=== PATIENT | female | born 1950 | race Caucasian/White ===

== ENCOUNTER → 2016-08-21 | Outpatient (CLI) | payer OTHER ==
[~2016-08-21] MED LIST: IOPAMIDOL (ISOVUE-300) 100 ML BTL IV ONE
[2016-08-21 10:24] LABS: CREATININE 0.8 mg/dL (0.6-1.0); GLOMERULAR FILTRATION RATE > 60
--- NOTE | 2016-08-21 12:20 | CT ---
CT Abdomen and Pelvis (Without and With Contrast) CT Urogram 1047 hours History gross hematuria (R 31.0). Recurrent bladder infections. Technique: Spiral images were obtained through the abdomen and pelvis without contrast for renal ston e evaluation. 99 mL of Isovue-300 IV contrast were administered and spiral images were obtained throu gh the abdomen. After a 12-minute delay, spiral imaging was obtained through the abdomen and pelvis. Images were reconstructed in multiple planes for CT urogram imaging. An AP scanogram breakfast bar attendant image was also obtained over the abdomen and pelvis after axial imaging was acquired. Dose reduction techniques were utilized. Findings: On the noncontrast images, there is no evidence of calculus projected over the kidneys or a long the expected path of the ureters. No bladder calculus is seen, as well. With IV contrast administration, there is good uptake and excretion of contrast by the kidneys. There is incidental cyst mid to upper right kidney measuring 16 x 13 mm. There are a few subcentimeter cys ts lower pole left kidney. No filling defects are seen within the collecting system on either side wi th normal contour to the renal collecting structures, as well as the ureters. The distal ureters do n ot fill completely on delayed imaging. On delayed KUB breakfast bar attendant image there is adequate filling of the di stal left ureter. Extrarenal pelvis is present bilaterally. There is indentation along the posterior wall of the left renal pelvis from a vessel. The bladder has a normal contour. No bladder lesion is s een. Liver: Within the left lobe liver lateral segment which is positioned in the left upper abdomen there is an incidental cyst measuring 3.7 x 3.1 cm. No additional liver lesions are seen. Spleen: Normal. Gallbladder and Bile Ducts: Normal. Pancreas: Normal. Adrenals: Normal. Abdominal Aorta: No aneurysm. Pelvic structures: There are no pelvic masses or lymphadenopathy. The patient has had a previous hyst erectomy. There does appear to be left ovary along the left pelvic sidewall. Bladder: Normal . Appendix: Previous appendectomy. Bowel Loops: Normal. No bowel obstruction, ascites, or significant retroperitoneal lymphadenopathy. Skeletal system: Vertebral body heights are well-maintained. Degenerative disk disease is noted more prominent on the left side of L3-L4. Disk bulges are seen throughout the lumbar spine with findings most prominent at L4-L5 along with ligamentum flavum hypertrophy and facet hypertrophy contributes to moderate spinal stenosis. Impression: 1. Normal CT urogram. No underlying renal or ureteral lesions are seen as well as normal contour to t he bladder. 2. Incidental renal cysts. 3. Extrarenal pelvis noted bilaterally. 4. Incidental cyst left lobe liver lateral segment. 5. Degenerative disk disease involving the lumbar spine along with facet hypertrophy associated spina l stenosis at L4-L5
== END ==
LOC: FIMAGING 09:49
PROVIDERS: ATTEND Physician Assistant Medical
DX: Z03.89 Encounter for observation for other suspected diseases and conditions ruled out (principal); N28.1 Cyst of kidney, acquired; M51.36 Other intervertebral disc degeneration, lumbar region; M48.06 Spinal stenosis, lumbar region
CPT/HCPCS: 74178; Q9967

== ENCOUNTER → 2016-08-27 | Outpatient (CLI) | payer OTHER ==
--- NOTE | 2016-08-27 19:37 | DX ---
Chest, Two Views, August 27, 2016 at 1520 hours History: J15.9. Bacterial pneumonia. Comparison: Chest x-ray March 2016, CT February 2016. Findings: Cardiac silhouette is within normal range. Bilateral peribronchial thickening. No pneumo sophia, congestive heart failure, pleural effusion, or pneumothorax. In the anterior aspect of the righ t fourth rib, there is a sclerotic bone island, unchanged since March 09, 2016. Resolution of previ ous bilateral lower lobe atelectasis. Impression: 1. Bronchitis. 2. No definite focal pneumonia.
== END ==
LOC: BMCIMAGING 15:23
PROVIDERS: ATTEND Internal Medicine
DX: J40 Bronchitis, not specified as acute or chronic (principal)

== ENCOUNTER → 2017-04-07 | Outpatient (CLI) | payer OTHER | LOC: BMCIMAGING 08:22 | PROVIDERS: ATTEND Internal Medicine | DX: Z12.31 Encounter for screening mammogram for malignant neoplasm of breast (principal) | CPT/HCPCS: G0202 ==

== ENCOUNTER → 2017-04-23 | Outpatient (CLI) | payer OTHER | LOC: BMCIMAGING 08:54 | PROVIDERS: ATTEND Internal Medicine | DX: R09.89 Other specified symptoms and signs involving the circulatory and respiratory systems (principal); R10.10 Upper abdominal pain, unspecified; R11.0 Nausea ==

== ENCOUNTER → 2017-04-26 | Outpatient (CLI) | payer OTHER | LOC: BMCIMAGING 07:34 | PROVIDERS: ATTEND Internal Medicine | DX: R09.89 Other specified symptoms and signs involving the circulatory and respiratory systems (principal); R10.10 Upper abdominal pain, unspecified; R11.0 Nausea; K76.89 Other specified diseases of liver; N28.1 Cyst of kidney, acquired ==

== ENCOUNTER → 2017-04-30 | Outpatient (CLI) | payer OTHER | LOC: FIMAGING 09:04 | PROVIDERS: ATTEND Internal Medicine | DX: R10.10 Upper abdominal pain, unspecified (principal); R11.0 Nausea ==

== ENCOUNTER 2017-11-21 06:52 | Emergency (ER) | payer OTHER ==
--- NOTE | 2017-11-21 07:22 | EDPHY ---
H & P Stated Complaint: l sided lagos intermittent 2 wks/pcp ordered mri unable to get scheduled Time Seen by Provider: 11/21/17 07:21 - Personal History Current Tetanus/Diphtheria Vaccine: Yes Tetanus Vaccine Date: 2015 - Medical/Surgical History Hx Asthma: Yes Hx Chronic Respiratory Disease: No Hx Diabetes: No Hx Cardiac Disease: No Hx Renal Disease: No Hx Cirrhosis: No Hx Alcoholism: No Hx HIV/AIDS: No Hx Splenectomy or Spleen Trauma: No Other PMH: PMHx: chronic back pain, LBBB, Thyroid mass. PSHx: Meningioma removal 2016; appy; hysterectomy; T&A;LBBB-2016. ;LABILE B/P;Asthma;1971 ovarian cyst removal;Polio. l thmb surgery - Social History Smoking Status: Never smoked Constitutional: Initial Vital Signs Temperature (C) 36.5 C 11/21/17 07:04 Heart Rate 79 11/21/17 07:04 Respiratory Rate 18 11/21/17 07:04 Blood Pressure 124/88 H 11/21/17 07:04 O2 Sat (%) 95 11/21/17 07:04 O2 Delivery Mode Room Air Allergies/Adverse Reactions: bisacodyl [From Dulcolax (bisacodyl)] Allergy (Verified 11/21/17 07:03) prochlorperazine [From Compazine] Allergy (Verified 11/21/17 07:03) prochlorperazine edisylate [From Compazine] Allergy (Verified 11/21/17 07:03) prochlorperazine maleate [From Compazine] Allergy (Verified 11/21/17 07:03) thimerosal Allergy (Verified 11/21/17 07:03) Home Medications: Medication Instructions Recorded buPROPion XL [Wellbutrin 150mg XL] 150 mg PO DAILY 07/30/15 Cholecalciferol Vit D3 [Vitamin D3 1,000 units PO DAILY 03/08/16 (*)] Herbals/Supplements -Info Only 1 ea PO DAILY 03/08/16 [place]-3 Fatty Acids [Fish Oil 1000 1,000 mg PO DAILY 03/08/16 mg (*)] Acetaminophen [Tylenol 325mg (*)] 325 - 650 mg PO Q4 PRN #0 tab 03/28/16 Calcium Carbonate [Oyster Shell 500 mg PO QID #0 tab 03/28/16 Calcium 500 mg (*)] buPROPion XL [Wellbutrin 150mg XL] 150 mg PO DAILY #0 tab 03/28/16 Calcium Carb W/Vit D [Calcium Carb 500 mg PO BID #60 tab 03/29/16 W/Vit D 500/200 (*)] Chainstitch Zipper Setter Thyroid 11/21/17 Medical Decision Making ED Course/Re-evaluation: CHIEF COMPLAINT: Headache HISTORY OF PRESENT ILLNESS: 67-year-old female whose had a headache for 2 weeks on the left side of her head. She saw Dr. Saeid Castillo on Wednesday. He did a full neurologic exam and also evaluated her for infectious cause like sinusitis and did not believe it was sinus infection. Neurologic exam was normal. As it is today. 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 She also has an arachnoid cyst somewhere and she is not sure where that is. This headache has been present for 2 weeks it has been constant left-sided nothing really relieves that nothing makes it worse. Denies fevers or chills. Denies systemic illness. Denies neurologic dysfunction. Denies recent trauma. Does state that her teeth hurt in her left ear hurts a bit REVIEW OF SYSTEMS: A 10 point review of systems was performed and is negative with the exception of the elements mentioned in the history of present illness. PHYSICAL EXAM: HR, BP, O2 Sat, RR. Temp noted General Appearance: Alert, well hydrated, appropriate, and non-toxic appearing. Head: Atraumatic without scalp tenderness or obvious injury Eyes: Pupils equal, round, reactive to light and accommodation, EOMI, no trauma , no injection. Ears: Clear bilaterally, no perforation, normal landmarks Nose: Atraumatic, no rhinorrhea, clear. Throat: There is no erythema or exudates, no lesions, normal tonsils, mucus membranes moist. Neck: Supple, 2+ carotid upstroke, nontender, no lymphadenopathy. Respiratory: No retractions, no distress, no wheezes, and no accessory muscle use. Lungs are clear to auscultation bilaterally. Cardiovascular: Regular rate and rhythm, no murmurs, rubs, or gallops. Bilateral carotid, radial, dorsalis pedis, and posterior tibial pulses intact. Good capillary refill all extremities. Gastrointestinal: Abdomen is soft, nontender, non-distended, no masses, no rebound, no guarding, no peritoneal signs. Musculoskeletal: Normal active ROM of all extremities, atraumatic. Neurological: Alert, appropriate, and interactive. The patient has normal DTRs and non-focal cranial nerves, motor, sensory, and cerebellar exam. Skin: No rashes, good turgor, no nodules on palpation. Past medical history: Meningioma, arachnoid cyst Past surgical history: Meningioma removal Family history: Noncontributory Social history: , retired, does not abuse tobacco drugs or alcohol DIAGNOSTICS/PROCEDURES/CRITICAL CARE TIME: Study: MRI of the: Brain with and without contrast Indication: History of meningioma resection and an arachnoid cyst with headache x2 weeks Results: MRI scan of the brain was obtained. The results of the study are no changes from prior. The study was read by the radiologist, Dr. Mendoza. I viewed the images myself on the PACS system. DIFFERENTIAL DIAGNOSIS: The differential diagnosis for the patient's headache included but was not limited to subarachnoid hemorrhage, migraine headache, tension headache and infectious causes such as meningitis, pharyngitis and sinusitis. MEDICAL DECISION MAKING: This patient has had a meningioma resection of a cerebellar pontine angle back in 2016. She also has an arachnoid cyst and she is unsure what part of her brain that is in. She has had a headache on the left side for 2 weeks and she also has dental pain and left ear pain. She saw her primary physician on Wednesday who did not think this was sinusitis although her symptoms seem as a could be sinusitis. At this point based on her intracranial history we will perform neuro imaging with and without contrast. She cannot take any nonsteroidals, she gets seizures with Compazine, and she only uses Tylenol for pain and does not want any opioids. MRI is negative for acute process. Reevaluated patient and discussed findings. She declines further treatment of her headache and would like to go home. Follow up and return precautions discussed. - Data Points Laboratory Results: 11/21/17 07:54 POC Hgb 15.3 gm/dL gm/dL (12.6-16.3) POC Hct 45 % % (38-47) POC Sodium 143 mEq/L mEq/L (135-145) POC Potassium 3.7 mEq/L mEq/L (3.3-5.0) POC Chloride 104 mEq/L mEq/L (97-110) POC BUN 15 mg/dL mg/dL (7-23) POC Creatinine 0.9 mg/dL mg/dL (0.6-1.0) POC Glucose 81 mg/dL mg/dL (70-100) Point of Care Test Results: 11/21/17 07:54 POC Sodium 143 POC Potassium 3.7 POC Chloride 104 POC BUN 15 POC Creatinine 0.9 POC Glucose 81 Departure - Departure Disposition: Home, Routine, Self-Care Clinical Impression: Headache Qualifiers: Headache type: other headache syndrome Qualified Code(s): G44.89 - Other headache syndrome Condition: Good Instructions: Acute Headache (ED) Additional Instructions: Follow up with your primary care provider and/or neurologist for continued symptoms. Return to the ED for any worsening of condition. Referrals: Saeid Castillo MD [Primary Care Provider] - As per Instructions
[2017-11-21] MEDS ORDERED: GADOBUTROL 10 ML VIAL IVP ONE (08:28)
[2017-11-21 10:20] VITALS: BP 120/68
== END 2017-11-21 10:20 | disposition home or self-care (01) ==
DX: G44.89 Other headache syndrome (principal); J45.909 Unspecified asthma, uncomplicated
CPT/HCPCS: 70553; 99285; A9585; 82947-QW

== ENCOUNTER → 2018-03-24 | Outpatient (CLI) | payer OTHER | LOC: BMCIMAGING 13:30 | PROVIDERS: ATTEND Internal Medicine Endocrinology, Diabetes & Metabolism | DX: Z13.820 Encounter for screening for osteoporosis (principal); M85.89 Other specified disorders of bone density and structure, multiple sites; Z78.0 Asymptomatic menopausal state ==

== ENCOUNTER → 2018-05-03 | Outpatient (CLI) | payer OTHER | LOC: FIMAGING 08:21 | PROVIDERS: ATTEND Internal Medicine | DX: Z12.31 Encounter for screening mammogram for malignant neoplasm of breast (principal) ==

== ENCOUNTER → 2018-05-10 | Outpatient (CLI) | payer OTHER | LOC: FIMAGING 14:05 | PROVIDERS: ATTEND Internal Medicine | DX: I25.10 Atherosclerotic heart disease of native coronary artery without angina pectoris (principal); J98.09 Other diseases of bronchus, not elsewhere classified; K76.89 Other specified diseases of liver; N28.1 Cyst of kidney, acquired ==

== ENCOUNTER → 2018-08-23 | Outpatient (CLI) | payer OTHER | LOC: FIMAGING 10:41 | PROVIDERS: ATTEND Internal Medicine Endocrinology, Diabetes & Metabolism | DX: Z08 Encounter for follow-up examination after completed treatment for malignant neoplasm (principal); Z85.850 Personal history of malignant neoplasm of thyroid ==

== ENCOUNTER 2018-08-29 08:34 | Emergency (ER) | payer OTHER ==
--- NOTE | 2018-08-29 09:14 | EDPHY ---
General Time Seen by Provider: 08/29/18 09:14 Narrative: CLINICAL IMPRESSION: Cough, reactive airway disease ASSESSMENT/PLAN: Patient is a 68-year-old female with a significant medical history of asthma, remote thyroid cancer status post thyroidectomy, remote brain tumor and remote polio who presents to the emergency department with complaints of cough, burning sensation across chest and episode of choking. Patient is afebrile and not toxic appearing, she was in no acute distress. The patient was placed on sloop captain and and ECG was immediately obtained- revealed sinus rhythm with underlying left bundle branch block; reviewed by Dr. Horn. When compared to previous ECG, unchanged and without signs of acute ischemia. Troponin undetectable. CBC with mild leukocytosis which I suspect is secondary to dexamethasone. Her vital signs were reviewed and there was no evidence of sepsis or serious bacterial illness. CMP with no significant metabolic abnormality or evidence of acute kidney injury. Chest x-ray revealed mild reactive airway disease. Influenza is negative. History and physical examination is most consistent with acute exacerbation of reactive airway disease. The patient was given an albuterol nebulized treatment with a marked improvement of her symptoms. There were no findings of ACS, pneumothorax or pneumonia and I have a low suspicion for other etiologies to include but not limited to pulmonary embolism, aortic dissection, Senia- Harvey tear, boerhaave syndrome, pancreatitis, mediastinitis, myocarditis, pericarditis, or additional intra-abdominal/intrathoracic emergent processes. On repeat examination the patient reports that she is feeling better. She is very reassured by findings today. The patient was able to obtain a follow-up appointment with her primary care provider this afternoon who knows her very well. Strict return precautions discussed- she will return for any symptom concern, particularly chest pain, shortness of breath, rapid or irregular heartbeat, unusual fatigue, cough, coughing up blood or discolored sputum, swelling, dizziness, weakness, fainting, nausea, vomiting, abdominal pain, fever , chills, headache, or for any other new, worsening, or worrisome symptoms. Patient verbalizes understanding and she is in agreement with plan. DIFFERENTIAL DX: Chest pain including but not limited to myocardial ischemia, pulmonary embolus, chest wall pain, pleural inflammation and pulmonary infectious causes. ED COURSE: 930: Discussed with Dr. Rozeski 945: ECG reviewed by Dr. Horn, very similar to previous ECG. 1005: Chest x-ray with evidence of mild reactive airway disease, no evidence of consolidation. 1105: On repeat examination the patient is well-appearing, she states she feels much better after the nebulized treatment. She has been able to obtain an appointment with Dr. Castillo this afternoon. Patient will continue her dexamethasone and montelukast that she just started, will add nebulized treatments at home as needed. CHIEF COMPLAINT: Cough, chest burning and choking HPI: Patient is a 68-year-old female with a history of asthma, thyroid cancer status post thyroidectomy, a remote brain tumor and remote polio who presents to the emergency department with cough, choking and burning sensation across her chest. Patient reports at 5:30 a.m. this morning she was awoken from her sleep with a coughing attack, she was experiencing a burning sensation across her chest at that time and reports coughing so hard she started to choke. Patient got out of bed and proceeded to have a severe coughing fit. She used her albuterol without any relief. She reports that the burning sensation across her chest lasted a short period of time, it did not radiate and she had no associated nausea, vomiting or diaphoresis. She feels that it was associated to her coughing fit. Patient has been experiencing cough for the last 8 days, seen and evaluated by her primary care provider last Wednesday and Wednesday. She was prescribed montelukast, dexamethasone and albuterol and feels that she is not getting better. She does have a history of asthma however does not feel like this is an asthma exacerbation. Patient denies any runny nose, congestion , earache or sore throat. She has had no fevers or chills. She denies any nausea, vomiting or abdominal pain. Bowel movements have been regular, denies any urinary symptoms. She endorses an extensive workup by pulmonology and has also trialed antacids for this in the past. PMH: Asthma, remote thyroid cancer status post thyroidectomy, remote brain tumor and remote polio Pertinent Past Surgical History: Thyroidectomy Family History: Noncontributory Social History: Denies smoking, denies illicit drug use REVIEW OF SYSTEMS: All other systems negative Constitutional: [No fever, no chills, appetite change.] Eyes: [No discharge, vision change] ENT: [No sore throat, congestion, ear pain.] Cardiovascular: Chest burning sensation, no palpitations Respiratory: Cough, shortness of breath, choking. Gastrointestinal: [No abdominal pain, no vomiting, diarrhea.] Genitourinary: [No hematuria, dysuria, flank pain, pelvic pain] Musculoskeletal: [No joint swelling, joint pain, myalgias.] Skin: [No rashes, color change.] Neurological: [No headache, dizziness, weakness.] PHYSICAL EXAM: General Appearance: Elderly, well-developed, tired appearing however not toxic- appearing. HENT: Normocephalic, atraumatic. Bilateral external ears are normal. Bilateral tympanic membranes are normal with pearly stevens reflex. Nares are clear, mucosa is pink. Oropharynx is clear, uvula is midline. There is no tonsillar enlargement or exudate. The dentition is normal. Eyes: [PERRLA, no acute vision change, nystagmus, swelling, discharge, pain or photosensitivity. Conjunctiva pink, no pallor or injection.] Neck: [Supple, nontender, no lymphadenopathy, no midline pain, FROM, no meningismus.] Respiratory: [There are no retractions, lungs with mild global expiratory wheeze and mild rhonchi at the bases.] Cardiac: [Regular rate and rhythm, no murmurs or gallops.] Gastrointestinal: [Abdomen is soft, nontender, bowel sounds normal, no masses/ hernia, no rigidity, guarding or focal peritoneal findings.] Neurological: [ Alert and oriented x 3, CN 2-12 grossly intact, normal gait no ataxia, DTR's intact, normal sensation and strength.] Skin: [Warm, dry, no rashes, no nodules on palpation.] Musculoskeletal: [Extremities are symmetrical, full range of motion, no tenderness, deformity, swelling, or erythema.] Psychiatric: [Patient is oriented X 3, there is no agitation.] MEDICAL DECISION MAKING: Patient was seen independently. Secondary supervising physician at time of evaluation was Dr. Horn, I discussed all aspects of this case and plan of care with him however he did not evaluate this patient personally. Diagnosis: Cough, reactive airway disease. New, requires workup Summary: [ See Assessment and Plan for summary of ED visit ] Clinical lab tests: [ ordered / reviewed]. Independent visualization of images, tracing, or specimens: Yes. Decision to obtain medical records or history from someone other than the patient: Yes, Review / Summarize previous medical records: Yes Discussed patient with another provider: Yes, Dr. Horn Patient Progress: Stable, discharged. - Diagnostics Imaging Results: Imaging Impressions Chest X-Ray 08/29/18 09:24 Impression: Features consistent with mild reactive airways' disease. There is no focal infiltrate. - History Smoking Status: Never smoked - Objective Vital Signs: Initial Vital Signs Temperature (C) 36.3 C 08/29/18 08:46 Heart Rate 85 08/29/18 08:46 Respiratory Rate 18 08/29/18 08:46 Blood Pressure 114/78 08/29/18 08:46 O2 Sat (%) 97 08/29/18 08:46 O2 Delivery Mode Room Air Allergies/Adverse Reactions: bisacodyl [From Dulcolax (bisacodyl)] Allergy (Verified 11/21/17 07:03) prochlorperazine [From Compazine] Allergy (Verified 11/21/17 07:03) prochlorperazine edisylate [From Compazine] Allergy (Verified 11/21/17 07:03) prochlorperazine maleate [From Compazine] Allergy (Verified 11/21/17 07:03) thimerosal Allergy (Verified 11/21/17 07:03) Home Medications: Medication Instructions Recorded buPROPion XL [Wellbutrin 150mg XL] 150 mg PO DAILY 07/30/15 Cholecalciferol Vit D3 [Vitamin D3 1,000 units PO DAILY 03/08/16 (*)] Herbals/Supplements -Info Only 1 ea PO DAILY 03/08/16 [place]-3 Fatty Acids [Fish Oil 1000 1,000 mg PO DAILY 03/08/16 mg (*)] Acetaminophen [Tylenol 325mg (*)] 325 - 650 mg PO Q4 PRN #0 tab 03/28/16 Calcium Carbonate [Oyster Shell 500 mg PO QID #0 tab 03/28/16 Calcium 500 mg (*)] buPROPion XL [Wellbutrin 150mg XL] 150 mg PO DAILY #0 tab 03/28/16 Calcium Carb W/Vit D [Calcium Carb 500 mg PO BID #60 tab 03/29/16 W/Vit D 500/200 (*)] Enrichment Director Thyroid 11/21/17 Albuterol [Proventil Neb] 3 ml IH QID PRN #30 deyvial 08/29/18 Laboratory Results: Laboratory Results 08/29/18 10:00 08/29/18 10:00 08/29/18 08/29/18 08/29/18 10:39 10:07 10:00 WBC RBC Hgb Hct MCV MCH MCHC RDW Plt Count MPV Neut % (Auto) Lymph % (Auto) Merrick % (Auto) Eos % (Auto) Baso % (Auto) Nucleat RBC Rel Count Absolute Neuts (auto) Absolute Lymphs (auto) Absolute Monos (auto) Absolute Eos (auto) Absolute Basos (auto) Absolute Nucleated RBC Immature Gran % Immature Gran # Sodium 138 mEq/L mEq/L (135-145) Potassium 3.5 mEq/L mEq/L (3.5-5.2) Chloride 106 mEq/L mEq/L (97-110) Carbon Dioxide 25 mEq/l mEq/l (22-31) Anion Gap 7 mEq/L mEq/L (6-14) BUN 16 mg/dL mg/dL (7-23) Creatinine 0.6 mg/dL mg/dL (0.6-1.0) Estimated GFR > 60 Glucose 96 mg/dL mg/dL (70-100) Calcium 8.7 mg/dL mg/dL (8.5-10.4) Total Bilirubin 0.9 mg/dL mg/dL (0.1-1.4) AST 18 IU/L IU/L (14-46) ALT 22 IU/L IU/L (9-52) Alkaline Phosphatase 79 IU/L IU/L (38-126) POC Troponin I 0.01 ng/mL ng/mL (0.00-0.08) Total Protein 6.3 g/dL g/dL (6.3-8.2) Albumin 3.8 g/dL g/dL (3.5-5.0) Nasal Influenza A PCR NEGATIVE FOR FLU A (NEGATIVE) Nasal Influenza B PCR NEGATIVE FOR FLU B (NEGATIVE) 08/29/18 10:00 WBC 10.77 10^3/uL H 10^3/uL (3.80-9.50) RBC 4.59 10^6/uL 10^6/uL (4.18-5.33) Hgb 14.3 g/dL g/dL (12.6-16.3) Hct 41.5 % % (38.0-47.0) MCV 90.4 fL fL (81.5-99.8) MCH 31.2 pg pg (27.9-34.1) MCHC 34.5 g/dL g/dL (32.4-36.7) RDW 11.9 % % (11.5-15.2) Plt Count 292 10^3/uL 10^3/uL (150-400) MPV 10.2 fL fL (8.7-11.7) Neut % (Auto) 78.8 % H % (39.3-74.2) Lymph % (Auto) 14.1 % L % (15.0-45.0) Merrick % (Auto) 5.9 % % (4.5-13.0) Eos % (Auto) 0.3 % L % (0.6-7.6) Baso % (Auto) 0.3 % % (0.3-1.7) Nucleat RBC Rel Count 0.0 % % (0.0-0.2) Absolute Neuts (auto) 8.49 10^3/uL H 10^3/uL (1.70-6.50) Absolute Lymphs (auto) 1.52 10^3/uL 10^3/uL (1.00-3.00) Absolute Monos (auto) 0.64 10^3/uL 10^3/uL (0.30-0.80) Absolute Eos (auto) 0.03 10^3/uL 10^3/uL (0.03-0.40) Absolute Basos (auto) 0.03 10^3/uL 10^3/uL (0.02-0.10) Absolute Nucleated RBC 0.00 10^3/uL 10^3/uL (0-0.01) Immature Gran % 0.6 % % (0.0-1.1) Immature Gran # 0.06 10^3/uL 10^3/uL (0.00-0.10) Sodium Potassium Chloride Carbon Dioxide Anion Gap BUN Creatinine Estimated GFR Glucose Calcium Total Bilirubin AST ALT Alkaline Phosphatase POC Troponin I Total Protein Albumin Nasal Influenza A PCR Nasal Influenza B PCR Medications Given: Discontinued Medications Albuterol (Proventil Neb) 3 ml IH EDNOW ONE Stop: 08/29/18 09:28 Last Admin: 08/29/18 10:37 Dose: 3 ml Point of Care Test Results: Chemistry 08/29/18 10:07 POC Troponin I 0.01 ng/mL ng/mL (0.00-0.08) Departure - Departure Disposition: Home, Routine, Self-Care Clinical Impression: Reactive airway disease Qualifiers: Asthma severity: mild Asthma persistence: intermittent Asthma complication type : with acute exacerbation Qualified Code(s): J45.21 - Mild intermittent asthma with (acute) exacerbation Condition: Good Instructions: Reactive Airways Disease (ED) Additional Instructions: DISCHARGE INSTRUCTIONS FROM YOUR DOCTOR Thank you for visiting our emergency department today. Please keep in mind that discharge from the emergency department does not mean that there is nothing wrong - it simply means that we have not identified an emergency condition that requires further evaluation or treatment in the hospital. You should always plan to follow up with primary care for re-evaluation of your condition in the next 2-3 days. Please follow-up with Dr. Castillo as we discussed. Nebulized treatment as prescribed and as needed. People present with illnesses and injuries in different ways, and it is always possible that we have missed something. You may always return for re-evaluation if symptoms worsen or if they are not improving or if you develop new/different symptoms. Again, thank you for choosing our emergency department. We hope that you feel better. Referrals: Saeid Castillo MD [Primary Care Provider] - 1 day without fail Prescriptions: Albuterol [Proventil Neb] 3 ml IH QID PRN #30 deyvial PRN Reason: Short Of Breath/Dyspnea
[2018-08-29] MEDS ORDERED: ALBUTEROL 3 ML DEYVIAL IH ONE (09:27)
--- NOTE | 2018-08-29 09:56 | CPEKG ---
Test Reason : OPEN Blood Pressure : / mmHG Vent. Rate : 053 BPM Atrial Rate : 052 BPM P-R Int : 155 ms QRS Dur : 132 ms QT Int : 464 ms P-R-T Axes : 073 -56 086 degrees QTc Int : 436 ms Sinus rhythm Atrial premature complex Left bundle branch block Confirmed by Hernan Sutherland ([id number]) on 08/29/2018 9:55:55 AM Referred By: HERNAN SUTHERLAND Confirmed By:Hernan Sutherland
[2018-08-29 10:13] LABS: PLATELET COUNT 292 10^3/uL (150-400)
--- NOTE | 2018-08-29 12:15 | ASMTCMCOM ---
CM Note CM Note Notes: CM asked to meet with patient regarding obtaining a home nebulizer. Prescription provided per ED provider. This CM contacted RT Keli who confirms that patient should simply take prescription to her pharmacy and inquire into cost and/or insurance coverage. Keli also confirms that patient may need to obtain an order/prescription from her PCP for insurance coverage. Patient informed by this CM. Patient states that she has an appointment scheduled today at 3:30 PM with her PCP, Dr. Castillo and I have LM with Dr. Castillo Electromyographic Technician, Karely regarding coordination of care. Patient is aware that she can drop off her current prescription at the pharmacy and discuss this further with this afternoon. CM available for further needs Date Signed: 08/29/2018 12:14 PM Electronically Signed By:Nadia Bruce RN
[2018-08-29 12:22] VITALS: BP 121/81
== END 2018-08-29 12:26 | disposition home or self-care (01) ==
DX: J45.21 Mild intermittent asthma with (acute) exacerbation (principal)
CPT/HCPCS: 71046; 93005; 99285; J7613; 84484-ER

== ENCOUNTER → 2018-09-11 | Outpatient (CLI) | payer OTHER | LOC: FIMAGING 09:50 | PROVIDERS: ATTEND Internal Medicine Pulmonary Disease | DX: R91.8 Other nonspecific abnormal finding of lung field (principal); J45.909 Unspecified asthma, uncomplicated; R05 Cough; R09.89 Other specified symptoms and signs involving the circulatory and respiratory systems ==

== ENCOUNTER → 2018-09-15 | Outpatient (CLI) | payer OTHER | LOC: FIMAGING 07:51 | PROVIDERS: ATTEND Internal Medicine Pulmonary Disease | DX: R05 Cough (principal); R09.89 Other specified symptoms and signs involving the circulatory and respiratory systems ==

== ENCOUNTER 2018-09-22 14:06 | Inpatient (IN) | payer OTHER ==
[2018-09-22] MEDS ORDERED: NS 500 ML IV ONE (14:21)
[2018-09-22] MEDS ORDERED: LIDOCAINE 1% 2 ML INJ ID PRN (14:21)
[2018-09-22] MEDS ORDERED: ALBUTEROL 3 ML DEYVIAL IH ONE (14:21)
[2018-09-22] MEDS ORDERED: BENZOCAINE UNIT DOSE SPRAY HURRICAINE MM ONE (16:05)
[2018-09-22] MEDS ORDERED: fentaNYL 100 MCG/2 ML INJ ONE (16:05)
[2018-09-22] MEDS ORDERED: MIDAZOLAM 2 MG/2 ML VIAL ONE (16:05)
[2018-09-22] MEDS ORDERED: ALBUTEROL 3 ML DEYVIAL ONE ×2 (16:05→17:50)
[2018-09-22] MEDS ORDERED: LIDOCAINE 1% 300 MG/30 ML SDV ONE (16:05)
[2018-09-22] MEDS ORDERED: EPINEPHrine 1 MG/ML INJ ONE (16:06)
[2018-09-22] MEDS ORDERED: LIDOCAINE HCL 4% TOPICAL SOLN 50ML ONE (16:06)
--- NOTE | 2018-09-22 16:06 | PDPROPOC ---
Sedation Plan of Care Sedation Plan of Care: vital signs stable, mental status noted, patient educated of risks, benefits, alternatives, patient can tolerate sedation ASA Classification: ASA 2 Planned drugs: fentanyl, midazolam Mallampati Score: Class 1 Mallampati Reference Image:
--- NOTE | 2018-09-22 16:06 | PDHPUP ---
History & Physical Update H&P update statement: This history and physical update is based on an assessment of the patient which was completed after admission or registration (within 24 hours), but prior to the surgery/procedure. H&P update: H&P reviewed & patient examined, no change in patient's condition since H&P completed
[2018-09-22] MEDS ORDERED: ACETAMINOPHEN 325 MG TAB PO PRN (19:29)
[2018-09-22] MEDS ORDERED: LORazepam 0.5 MG TAB PO PRN (19:29)
[2018-09-22] MEDS ORDERED: NS 1,000 ML IV SCH (19:30)
[2018-09-22] MEDS ORDERED: traMADol 50 MG TAB PO PRN (19:42)
[2018-09-22] MEDS: OXYCODONE/APAP 5/325 TAB PO PRN (20:35)
--- NOTE | 2018-09-22 23:09 | GCON ---
[f rep st] CONSULTATION DATE OF CONSULTATION: 09/22/2018 REASON FOR ADMISSION: Right-sided pneumothorax following transbronchial biopsy. HISTORY: Lurdes is a pleasant 68-year-old who I have been seeing recently in the office for cough. S he is a long-time asthmatic, but presented to me on referral from Dr. Castillo for a severe and prolong ed cough. Spirometry was not consistent with significant asthma or an asthma exacerbation. She has significant pulmonary congestion. A CT scan of the chest was done which showed bilateral small pulmo nary infiltrates associated with some bronchial wall thickening. Bronchoscopy was done with transbro nchial biopsies to obtain a diagnosis. This was done earlier today. Biopsies were done on the right side. Postprocedure, she had significant ongoing coughing and hypoxemia with saturations of approxi mately 85 despite oxygen by mask. Chest x-ray showed a relatively large primarily upper zone pneumot horax. A small bore chest tube was placed. This procedure is dictated elsewhere. Post chest tube p lacement x-ray is pending. As part of her workup, a barium swallow was done. There was no evidence of aspiration or reflux. PAST MEDICAL HISTORY: In addition to her asthma, she has a history of distant thyroid cancer and is status post thyroidectomy. MEDICATIONS: Home medications included levalbuterol by nebulizer, along with Pulmicort twice a day, tramadol, thyroid at 82 mcg per day by her recollection, ProAir HFA p.r.n., Flonase p.r.n., tapering Decadron, and recently azithromycin. SOCIAL HISTORY: She has recently moved into an old farm house with her boyfriend. The house has bee n quite dirty and active cleaning has been taking place. Her cough seems to be worse when she is at home, better when she is out and about. She has a dog to which she is not allergic. She is a never smoker. Significant alcohol is negative. FAMILY HISTORY: Negative/noncontributory. REVIEW OF SYSTEMS: A 10-point review of systems is negative except as mentioned above. She has not been sleeping well over the last several weeks secondary to persistent coughing at night. She does n ot bring up much mucus. PHYSICAL EXAMINATION: GENERAL: Reveals a woman who is comfortable, in no distress after her chest t ube was placed. VITAL SIGNS: Blood pressure is approximately 105/60, pulse 65 with sinus rhythm on the monitor, respiratory rate is 18. On an oxygen mask, saturations are 98%. HEENT: Remarkable for somewhat dry mucous membranes. There is no jugular venous distention. LUNGS: A new small bore preet st tube is in place in the right anterior upper chest. Breath sounds are improved after placing this . There are some bibasilar rales, no wheezing. With cough there is some central bronchial congestio n. HEART: Regular in rate and rhythm. There are no significant murmurs, no gallops. ABDOMEN: Sof t, nontender. Bowel sounds are normal. EXTREMITIES: Unremarkable for edema, cords, or tenderness. NEUROLOGIC: Examination is intact. DATABASE: Post chest tube chest x-ray is pending. No labs have been obtained. ASSESSMENT: 1. Pneumothorax secondary to transbronchial biopsies. Pneumothorax was relatively large and A small bore chest tube and was indicated and placed. I have not yet seen the post placement x-ray. 2. Cough. 3. Pulmonary infiltrates, query etiology. Bronchoalveolar lavage and transbronchial biopsies were p erformed today. Hopefully, this will give us a diagnosis. Her pulmonary infiltrates are new compare d to a CT scan 4 months ago. 4. History of asthma. There is no evidence of a significant exacerbation. However, spirometry has shown obstructive disease with some reversibility consistent with her diagnosis of asthma. Asthmatic bronchitis may be playing some role in her cough. PLAN/RECOMMENDATIONS: Patient will be admitted to the step-down unit in the intensive care unit. Ch est x-ray will be awaited. A followup x-ray will be obtained in the a.m. Chest tube will be kept on low suction. Her usual medications will be continued once medications have been reconciled. I will wait and see how she does tonight. I may increase her Decadron again to higher doses for a number o f days to see if this will again result in significant mitigation of her cough. Antitussives will be prescribed. Further plans and recommendations will be made based on her progress over the next 12 to 24 hours. /[id number]/MODL
[2018-09-23] MEDS: THYROID PORK 30 MG PO SCH (02:50)
[2018-09-23] MEDS: OXYCODONE/APAP 5/325 TAB PO PRN (03:05)
--- NOTE | 2018-09-23 04:35 | GPN ---
[f rep st] PROCEDURE NOTE PROCEDURE: Bronchoscopy. INDICATION: Persistent cough associated with bilateral areas of pulmonary infiltrate. PROCEDURE NOTE: The procedure was performed in the endoscopy unit. Informed consent was obtained fr om the patient. Appropriate time-out was performed. N95 masks were worn throughout. 5 cc of 4% lid ocaine was used for anesthesia of the posterior oropharynx. Approximately 25 cc of 1% lidocaine was used to anesthetize the vocal cords and lower tracheobronchial tree. Conscious sedation included 6 m g of Versed and 150 mcg of fentanyl. The fiberoptic bronchoscope was passed via bite block orally in the larynx. The vocal cords were kaz ntified. They move normally with cough and respiration. The bronchoscope was advanced through the v ocal cords and into the lower tracheobronchial tree bilaterally. The mucosa was generally erythemato us throughout. Rcui-jj-anpombes generalized edema was present as well. Secretions were relatively m inimal, clear and liquid. There were no purulent secretions, no mucus, and no mucus plugs. Endobron chial anatomy was normal. There were no endobronchial lesions. There was no evidence of extrinsic c ompression. Bronchoalveolar lavage along with bronch washes were taken bilaterally, and samples comb ined. Following this, transbronchial biopsies were taken under fluoroscopic guidance from the right lower lobe. The patient tolerated the procedure well. Vital signs and oxygen saturations were stable on suppleme ntal oxygen throughout the procedure. The patient had significant coughing at times during the procedure, which was difficult to control de spite what appeared to be very adequate sedation. After 3 biopsies, this became a problem and no fur ther biopsies were attempted. Samples were sent for cultures, cytologies, cell count and differential, and pathology including spec ial stains for AFB, fungus, and eosinophils. IMPRESSION: 1. Normal endobronchial anatomy. 2. Minimal nonpurulent secretions. 3. Generalized erythema greater than edema. 4. Pulmonary infiltrates associated with cough and pulmonary congestion: Query etiology. /[id number]/MODL
[2018-09-23 05:47] LABS: PLATELET COUNT 257 10^3/uL (150-400)
--- NOTE | 2018-09-23 06:40 | GPN ---
[f rep st] PROCEDURE NOTE DATE OF PROCEDURE: 09/22/2018 PROCEDURE: Small bore chest tube placement. INDICATION: Post transbronchial biopsy pneumothorax. PROCEDURE NOTE: The procedure was performed in the patient's room in the endoscopy unit. Appropriat e time-out was performed. Informed consent was obtained from the patient. Risks and benefits were d iscussed. No conscious sedation or pain medications were required. Approximately 20 mL of 1% lidoca ine was used for local anesthesia. The procedure was performed sterilely. The anterior upper chest was scrubbed with chlorhexidine. A sterile drape was placed. The interspace 2/3 was identified. Lidocaine was placed above this with l idocaine given in the subcutaneous tissues and between the ribs until adequate local anesthesia was a chieved. A small bore chest tube was placed without difficulty. Air returned. She was hooked to garner ction. The tube was sutured in place and a Biopatch placed. A clear sterile dressing was placed ove r this. The tube was hooked to a Heimlich valve and to low wall suction at -20. Chest x-ray following the procedure showed excellent expansion of the right lung and near-total resol ution of the pneumothorax. A small area in the mid lateral lung may not be fully expanded against th e chest wall. The patient will be admitted to the intensive care unit on step-down status. Appropriate orders have been placed. Followup x-ray will be obtained in the a.m. She will be placed to a Pleur-evac at -20 . /[id number]/MODL
[2018-09-23] MEDS ORDERED: ONDANSETRON 4 MG/2 ML VIAL IVP PRN (07:28)
[2018-09-23] MEDS: DEXAMETHASONE 2 MG TAB PO SCH (08:08)
[2018-09-23] MEDS ORDERED: LEVOTHYROXINE 88 MCG TAB PO SCH (09:00)
[2018-09-23] MEDS ORDERED: ENOXAPARIN 40 MG/0.4 ML SYR SC SCH (09:00)
--- NOTE | 2018-09-23 10:01 | PDMN ---
Medical Necessity Medical necessity: [facility] Pneumothorax M500, A-2 days: 68 yo s/p scheduled bronchoscopy w/ fluoroscopy, CPT 58362, for eval of sig pulm congestion, pulm infiltrates and bronchial wall thickening. Developed post procedure complications in which pt has sig ongoing coughing and hypoxemia w/ O2sat 85% despite O2 via mask, CXR shows large upper zone pneumothorax. Chest tube placed to LWS. Admit to SDU. Meets [facility] IP criteria for traumatic pneumothorax w/ resp distress (tachypnea and hypoxemia) and CT placement w/ active evac.
--- NOTE | 2018-09-23 11:02 | PDINTPN ---
Office Administration Instructor Progress Note Assessment/Plan: Assessment: Pneumothorax. Secondary to transbronchial biopsies performed during bronchoscopy. Small bore chest tube in place. Still has a small air leak. Will need to keep the chest tube in to suction. Pulmonary infiltrates: Suspect a hypersensitivity type reaction. Biopsies pending. I will see if I can get a preliminary report today. On low-dose Decadron. I may increase steroids while she is here. Asthma/asthmatic bronchitis/cough. Cough seem to be improved overnight. Prophylaxis: Refusing enoxaparin. I will increase her ambulation, continue SCDs while in bed. Plan: Transfer to a medical-surgical bed. Repeat chest x-ray in the morning. Continue small bore chest tube to Pleur-evac suction. Increase ambulation: 3 times a day at least 100 ft with Heimlich valve in place, off Pleur-Evac. Subjective: Doing well. No significant chest pain. No cough last night! Slept fairly well Objective: Vital Signs Temp Pulse Resp BP Pulse Ox 36.6 C 63 14 104/67 93 09/23/18 08:00 09/23/18 08:00 09/23/18 08:00 09/23/18 08:00 09/23/18 08:00 Laboratory Results 09/23/18 05:05 09/23/18 05:05 09/22/18 09/23/18 09/24/18 05:59 05:59 05:59 Intake Total 1085 Output Total 0 Balance 1085 CXR: Lung well expanded. There may be a small apical pneumothorax still present. Small bore chest tube in good position. Physical Exam - Physical Exam General Appearance: alert, no apparent distress EENT: other (Nasal cannula in place at 2 L) Neck: normal inspection Respiratory: lungs clear (Anteriorly), decreased breath sounds (At bases), other (Small bore chest tube in place. Definite air leak still persists.), No rhonchi (No rhonchi but central congestion present with cough), No wheezing, No pleural rub Cardiac/Chest: regular rate, rhythm, No gallop Abdomen: normal bowel sounds, non-tender, soft Skin: normal color, warm/dry Extremities: No pedal edema Neuro/Psych: no motor/sensory deficits, No cognition abnormalities ICD10 Worksheet Patient Problems: Problems Problem Status Onset Chest pain Acute
--- NOTE | 2018-09-23 11:48 | ASMTCMCOM ---
CM Note CM Note Notes: Patient admitted with Pneumothorax, chest tube in place. Likely transfer to Med/Surg floor today. Do not anticipate there being any CM involvement but will continue to follow until medically ready for d/c. No therapy following at this time. Plan: Likely Independent Date Signed: 09/23/2018 11:48 AM Electronically Signed By:Day Mc RN
[2018-09-23] MEDS ORDERED: THYROID PORK 15 MG PO SCH (14:30)
[2018-09-24] MEDS: THYROID PORK 30 MG PO SCH (03:06)
[2018-09-24] MEDS: LEVALBUTEROL 1.25 MG/3 ML DEYVIAL IH PRN ×2 (03:26→21:30)
[2018-09-24] MEDS: DEXAMETHASONE 2 MG TAB PO SCH (10:18)
[2018-09-24] MEDS: THYROID PORK 15 MG PO SCH (14:47)
--- NOTE | 2018-09-24 15:25 | SOAPPROG ---
SOAP Progress Note Assessment/Plan: Assessment: Pneumothorax. Secondary to transbronchial biopsies performed during bronchoscopy. Small bore chest tube in place. Still has a small air leak, appears to be decreasing. Will need to keep the chest tube in to suction. Pulmonary infiltrates: Suspect a hypersensitivity type reaction. Biopsies pending. On low-dose Decadron: I will continue this for now. Asthma/asthmatic bronchitis/cough. Cough is better, but still persists. Prophylaxis: Refusing enoxaparin. Increase ambulation, continue SCDs while in bed. Plan: Continue chest tube to suction.. Repeat chest x-ray in the morning. Continue ambulation: 3 times a day at least 100 ft with Heimlich valve in place , off Pleur-Evac. Subjective: Doing okay. Some cough overnight, some intermittent chest pain secondary to the tube Objective: Vital Signs Temp Pulse Resp BP Pulse Ox 36.8 C 68 16 110/67 90 L 09/24/18 14:52 09/24/18 14:52 09/24/18 14:52 09/24/18 14:52 09/24/18 14:52 Laboratory Results 09/23/18 05:05 09/23/18 05:05 09/23/18 09/24/18 09/25/18 05:59 05:59 06:59 Intake Total 1085 Output Total 0 Balance 1085 CXR: Increased pneumothorax this morning. Tube likely was kinked. Physical Exam - Physical Exam General Appearance: alert, no apparent distress EENT: other (On 1 L of oxygen, saturations 95%.) Neck: normal inspection Respiratory: lungs clear, decreased breath sounds (Bilaterally. Full inspiration limited by some pain. Lungs are clear. Air movement on the right side is pretty good.), other (Small bore chest tube is hooked to Pleur-Evac. Still has a air leak, smaller than yesterday.) Cardiac/Chest: regular rate, rhythm, No gallop Abdomen: normal bowel sounds, non-tender, soft Extremities: No pedal edema Neuro/Psych: no motor/sensory deficits, No cognition abnormalities ICD10 Worksheet Patient Problems: Problems Problem Status Onset Chest pain Acute
[2018-09-25] MEDS: THYROID PORK 30 MG PO SCH (03:05)
[2018-09-25] MEDS: DEXAMETHASONE 2 MG TAB PO SCH (09:18)
[2018-09-25] MEDS: THYROID PORK 15 MG PO SCH (14:42)
--- NOTE | 2018-09-25 15:26 | SOAPPROG ---
SOAP Progress Note Assessment/Plan: Assessment: Pneumothorax. Secondary to transbronchial biopsies. Small bore chest tube in place. Still has a small air leak, improving but not yet resolved. Will keep chest tube to suction. Pulmonary infiltrates: Suspect a hypersensitivity type reaction. Biopsies pending. On low-dose Decadron: I will continue this for now. Asthma/asthmatic bronchitis/cough. Cough is better, but still persists. On bronchodilator therapies Prophylaxis: Refusing enoxaparin. Increase ambulation, continue SCDs while in bed. Plan: Continue chest tube to suction. Repeat chest x-ray in the morning. Continue ambulation: 3 times a day at least 100 ft with Heimlich valve in place , off Pleur-Evac. If her air leak is not resolved tomorrow there is still possibility she could go home with the chest tube and Heimlich valve in place. Subjective: Feels better, less short of breath, less cough. No significant chest pain this morning. Objective: Vital Signs Temp Pulse Resp BP Pulse Ox 36.4 C 69 16 113/75 93 09/25/18 11:56 09/25/18 11:56 09/25/18 11:56 09/25/18 11:56 09/25/18 11:56 Laboratory Results 09/23/18 05:05 09/23/18 05:05 09/24/18 09/25/18 09/26/18 04:59 05:59 05:59 Intake Total Output Total 0 Balance 0 CXR: Minimal apical pneumothorax persists Physical Exam - Physical Exam General Appearance: alert, no apparent distress EENT: other (Currently on room air) Neck: normal inspection Respiratory: lungs clear (Anteriorly), decreased breath sounds (At bases), other (Air leak persists with cough. This is minimal), No rales, No rhonchi ( Some central congestion with cough, no change) Cardiac/Chest: regular rate, rhythm, No gallop Abdomen: normal bowel sounds, non-tender, soft Skin: normal color, warm/dry Extremities: No pedal edema Neuro/Psych: no motor/sensory deficits, No cognition abnormalities ICD10 Worksheet Patient Problems: Problems Problem Status Onset Chest pain Acute
[2018-09-26] MEDS: LEVALBUTEROL 1.25 MG/3 ML DEYVIAL IH PRN (01:15)
[2018-09-26] MEDS: OXYCODONE/APAP 5/325 TAB PO PRN (01:25)
[2018-09-26] MEDS: THYROID PORK 30 MG PO SCH (03:00)
[2018-09-26] MEDS: DEXAMETHASONE 2 MG TAB PO SCH (07:43)
--- NOTE | 2018-09-26 11:38 | SOAPPROG ---
SOAP Progress Note Assessment/Plan: Assessment: Pneumothorax. Secondary to transbronchial biopsies. Small bore chest tube in place. Still has a small air leak, quite minimal today but clearly still present. Will likely discharge her home later today leaving the chest tube in place with follow-up tomorrow in the office.. Pulmonary infiltrates: Suspect a hypersensitivity type reaction. Biopsies pending. On low-dose Decadron: I will continue this for now. Asthma/asthmatic bronchitis/cough. Cough is better, but still persists. On bronchodilator therapies Prophylaxis: Refusing enoxaparin. Increase ambulation, continue SCDs while in bed. Plan: Continue chest tube to suction for now, probably home later today with the chest tube and Heimlich valve in place and follow-up tomorrow. Subjective: Did cough yesterday and last night. Denies significant chest pain. Objective: Vital Signs Temp Pulse Resp BP Pulse Ox 36.9 C 65 16 125/64 H 90 L 09/26/18 11:23 09/26/18 11:20 09/26/18 11:20 09/26/18 11:20 09/26/18 11:20 Microbiology 09/22/18 16:50 Gram Stain - Final Pleural Fluid - Aspirate Anaerobic Culture - Final Laboratory Results 09/23/18 05:05 09/23/18 05:05 09/25/18 09/26/18 09/27/18 05:59 05:59 05:59 Intake Total Output Total 0 Balance 0 Chest x-ray: Unchanged from yesterday. Minimal sliver of air at the very apex. To remains in good position. Bibasilar infiltrates or atelectasis, quite small, persist. Physical Exam - Physical Exam General Appearance: alert, no apparent distress EENT: PERRL/EOMI, other (On room air) Neck: normal inspection Respiratory: decreased breath sounds (Breath sounds somewhat decreased bilaterally.), rales (Bibasilar rales), other (Chest tube still with a very minimal air leak with cough only. Improved.) Cardiac/Chest: regular rate, rhythm, No gallop Abdomen: normal bowel sounds, non-tender, soft Skin: normal color, warm/dry Extremities: No pedal edema Neuro/Psych: no motor/sensory deficits, No cognition abnormalities ICD10 Worksheet Patient Problems: Problems Problem Status Onset Chest pain Acute
[2018-09-26] MEDS: THYROID PORK 15 MG PO SCH (14:34)
[2018-09-26 15:34] VITALS: BP 131/74
--- NOTE | 2018-09-26 18:29 | PDDCSUM ---
Discharge Summary Discharge Summary: Date of admission: 09/22/2018 Date of discharge 09/26/2018 Discharge diagnoses: 1. Pneumothorax post bronchoscopy 2. Probable hypersensitivity pneumonitis 3. Cough Procedures: 1. Bronchoscopy with transbronchial biopsies. Complicated by pneumothorax. 2. Small bore anterior chest tube placement. Hospital course: The patient was admitted to the hospital following bronchoscopy. Pneumothorax occurred with biopsies taken during the bronchoscopy. Small bore chest tube was placed in the PACU in the patient was admitted and placed on suction by pleural vac. A Heimlich valve was in place throughout. She initially had a relatively large air leak. This significantly diminished however a small air leak was till present on the day of discharge. Chest x-ray showed a minimal sliver of remaining air at the apex. The tube was in good position. Room air saturation was in the 90s. She had some bibasilar rales. Intermittent cough with some congestion persisted. Pathology came back most consistent with a hypersensitivity pneumonitis as some noncaseating granulomata were seen. Her history is suggestive of this in that she is living in a farm house with mold present in the elizabeth, dust, etc and there is old wet hay and old as well as fresh manure nearby that is being composted in large quantities. New medication on discharge: Decadron at 8 mg per day. Condition on discharge: good Follow-up: With myself tomorrow.
== END 2018-09-26 18:07 | disposition home or self-care (01) | DRG 168 ==
LOC: FSGY 14:06 → F2N 18:07 → F3E 09-23 20:49
PROVIDERS: ADMIT Internal Medicine Pulmonary Disease; ATTEND Internal Medicine Pulmonary Disease
PROC: 0BBF8ZX Excision of Right Lower Lung Lobe, Via Natural or Artificial Opening Endoscopic, Diagnostic (ICD-10-PCS; 2018-09-22)
PROC: 0B9M8ZX Drainage of Bilateral Lungs, Via Natural or Artificial Opening Endoscopic, Diagnostic (ICD-10-PCS; 2018-09-22)
PROC: 0W9930Z Drainage of Right Pleural Cavity with Drainage Device, Percutaneous Approach (ICD-10-PCS; principal; 2018-09-22 15:45)
DX: J95.811 Postprocedural pneumothorax (principal); J67.0 Farmer's lung; J45.909 Unspecified asthma, uncomplicated; Z85.850 Personal history of malignant neoplasm of thyroid
CPT/HCPCS: J0171; J1650; J2250; J3010; J7613

== ENCOUNTER → 2018-09-27 | Outpatient (CLI) | payer OTHER | LOC: FIMAGING 13:58 | PROVIDERS: ATTEND Internal Medicine Pulmonary Disease | DX: J93.9 Pneumothorax, unspecified (principal); J90 Pleural effusion, not elsewhere classified ==

== ENCOUNTER → 2018-10-15 | Outpatient (CLI) | payer OTHER | LOC: FIMAGING 11:09 | PROVIDERS: ATTEND Internal Medicine Pulmonary Disease | DX: R05 Cough (principal); R06.02 Shortness of breath; J45.909 Unspecified asthma, uncomplicated ==

== ENCOUNTER → 2018-12-08 | Outpatient (CLI) | payer OTHER ==
[~2018-12-08] MED LIST changes: -IOPAMIDOL (ISOVUE-300) 100 ML BTL IV ONE; +IOPAMIDOL (ISOVUE-300) 100 ML BTL ONE
== END ==
LOC: FIMAGING 15:37
PROVIDERS: ATTEND Internal Medicine
DX: R07.81 Pleurodynia (principal)
CPT/HCPCS: 71260; Q9967; 82565-PO